=== PATIENT | female | born 1980 | race Caucasian/White ===

== ENCOUNTER 2018-02-26 05:28 | Day surgery (SDC) | payer OTHER ==
[2018-02-26] MEDS ORDERED: RECTICARE30 GM TOP (08:05)
[2018-02-26] MEDS ORDERED: PERCOCET 5-3251 EACH PO (08:05)
== END 2018-02-26 13:00 | disposition home or self-care (01) ==
LOC: CIR.AMB 05:28
DX: K60.3 Anal fistula (principal)

== ENCOUNTER 2018-08-13 05:55 | Day surgery (SDC) | payer OTHER ==
[~2018-08-13 05:55] MED LIST: PERCOCET 5-3251 EACH PO; RECTICARE30 GM TOP
== END 2018-08-13 17:55 | disposition home or self-care (01) ==
LOC: CIR.AMB 05:55
DX: D27.0 Benign neoplasm of right ovary (principal)